=== PATIENT | male | born 1990 | race Caucasian/White ===

== ENCOUNTER 2023-03-20 13:06 | Emergency (ER) | payer SELFPAY ==
[~2023-03-20] VITALS: Ht 185.4 cm; Wt 88.3 kg
[2023-03-20 13:10] VITALS: BP 122/79; TEMP 98.6
[2023-03-20 14:40] VITALS: PULSE 96
== END 2023-03-20 14:33 | disposition home or self-care (01) ==
LOC: COL.ER 13:06
DX: F10.11 Alcohol abuse, in remission (principal); F17.210 Nicotine dependence, cigarettes, uncomplicated; F17.290 Nicotine dependence, other tobacco product, uncomplicated; Z28.310 Unvaccinated for COVID-19